=== PATIENT | male | born 1995 | race Caucasian/White ===

== ENCOUNTER → 2018-05-16 | Outpatient (CLI) | payer OTHER | END | disposition home or self-care (01) | LOC: WOUND 10:10 | PROVIDERS: ATTEND Internal Medicine | DX: T22.211A Burn of second degree of right forearm, initial encounter (principal); T23.001A Burn of unspecified degree of right hand, unspecified site, initial encounter; S50.8 Other superficial injuries of forearm; S60.541A External constriction of right hand, initial encounter; S40.841A External constriction of right upper arm, initial encounter; T31.0 Burns involving less than 10% of body surface; Z87.891 Personal history of nicotine dependence; X08.8XXA Exposure to other specified smoke, fire and flames, initial encounter; Y93.89 Activity, other specified; Y92.89 Other specified places as the place of occurrence of the external cause; Y99.8 Other external cause status | CPT/HCPCS: 97597; 97598; 99215 ==

== ENCOUNTER → 2018-05-21 | Outpatient (CLI) | payer OTHER | END | disposition home or self-care (01) | LOC: WOUND 15:00 | PROVIDERS: ATTEND Internal Medicine | DX: T22.211D Burn of second degree of right forearm, subsequent encounter (principal); S50.8 Other superficial injuries of forearm; Z87.891 Personal history of nicotine dependence; T31.0 Burns involving less than 10% of body surface; X03.3XXD Fall due to controlled fire, not in building or structure, subsequent encounter; X03.3XXA Fall due to controlled fire, not in building or structure, initial encounter; Y93.89 Activity, other specified; Y92.89 Other specified places as the place of occurrence of the external cause; Y99.8 Other external cause status | CPT/HCPCS: 97597; 97598 ==

== ENCOUNTER → 2018-06-04 | Outpatient (CLI) | payer OTHER | END | disposition home or self-care (01) | LOC: WOUND 14:39 | PROVIDERS: ATTEND Internal Medicine | DX: T22.211D Burn of second degree of right forearm, subsequent encounter (principal); T31.0 Burns involving less than 10% of body surface; Z87.891 Personal history of nicotine dependence; X03.3XXD Fall due to controlled fire, not in building or structure, subsequent encounter | CPT/HCPCS: 99213 ==

== ENCOUNTER → 2019-12-24 | Outpatient (CLI) | payer OTHER | END | disposition home or self-care (01) | LOC: CFH 14:47 | PROVIDERS: ATTEND Physician Assistant | DX: M25.511 Pain in right shoulder (principal); R07.81 Pleurodynia ==